=== PATIENT | female | born 1980 | race Caucasian/White ===

== ENCOUNTER → 2020-02-20 | Outpatient (CLI) | payer BC ==
[2020-02-21 09:52] LABS: Basophils # (auto) 0.1 10 ^3/uL (0-0.2); Basophils % (auto) 0.9 % (0.0-2.0); Eosinophils # (auto) 0.2 10 ^3/uL (0-0.8); Eosinophils % (auto) 3.5 % (0.0-7.0); Hematocrit 46.1 % (36.0-46.0); Lymphocytes % (auto) 31.4 % (10.0-50.0); Mean Corpuscular Hemoglobin 28.9 pg (28.0-32.0); Mean Corpuscular Hgb Conc. 32.6 g/dL (32.0-36.0); Mean Corpuscular Volume 88.7 fL (80.0-100.0); Monocytes # (auto) 0.3 10 ^3/uL (0-1.3); Monocytes % (auto) 5.5 % (0.0-12.0); Neutrophils # (auto) 3.7 10 ^3/uL (1.6-8.6); Neutrophils % (auto) 58.7 % (37.0-80.0); Nucleated Red Blood Cells % 0.1 %; Platelet Count (auto) 291 10^3/uL (140-450); Red Blood Cells 5.19 10^6/uL (4.0-5.20); Red Cell Distribution Width 13.9 % (11.8-14.3); White Blood Cell 6.3 10^3/uL (4.4-10.8)
[2020-02-21 10:09] LABS: Albumin 3.7 g/dL (3.4-5.0); Anion Gap 9 (5-15); Blood Urea Nitrogen 10 mg/dL (7-18); Calcium 8.8 mg/dL (8.5-10.1); Carbon Dioxide 27 mmol/L (21-32); Chloride 104 mmol/L (98-107); Glucose 127 mg/dL (74-106); Potassium 4.8 mmol/L (3.5-5.1); Sodium 140 mmol/L (136-145)
[2020-02-21 10:14] LABS: Alanine Aminotransferase 33 U/L (13-56); Alkaline Phosphatase 100 U/L (45-117); Aspartate Aminotransferase 20 U/L (15-37); BUN/Creatinine Ratio 11.4; Bilirubin, Total 0.4 mg/dL (0.2-1.0); Cholesterol 205 mg/dL (< 200); GFR African American 92 mL/min; GFR Non-African American 76 mL/min; HDL Cholesterol 30 mg/dL (40-59); Triglycerides 524 mg/dL (< 150)
== END | disposition home or self-care (01) ==
LOC: LAB 08:55
PROVIDERS: ATTEND Internal Medicine
DX: Z00.00 Encounter for general adult medical examination without abnormal findings (principal)
CPT/HCPCS: 36415; 80053; 80061; 83036; 84443; 85025

== ENCOUNTER → 2020-07-01 | Outpatient (CLI) | payer BC ==
[2020-07-01 12:22] LABS: Potassium 3.9 mmol/L (3.5-5.1)
[2020-07-01 12:33] LABS: Albumin 3.6 g/dL (3.4-5.0); BUN/Creatinine Ratio 14.3; Bilirubin, Total 0.4 mg/dL (0.2-1.0); Calcium 8.8 mg/dL (8.5-10.1); Total Protein 7.4 g/dL (6.4-8.2)
== END | disposition home or self-care (01) ==
LOC: LAB 11:12
PROVIDERS: ATTEND Internal Medicine
DX: I10 Essential (primary) hypertension (principal); E78.5 Hyperlipidemia, unspecified; R73.9 Hyperglycemia, unspecified
CPT/HCPCS: 36415; 80053; 80061; 82043; 83036

== ENCOUNTER → 2020-11-18 | Outpatient (CLI) | payer BC | END | disposition home or self-care (01) | LOC: LAB 14:50 | DX: N63.0 Unspecified lump in unspecified breast (principal) ==

== ENCOUNTER → 2020-11-29 | Outpatient (CLI) | payer BC | END | disposition home or self-care (01) | LOC: Rad HDHVI 15:59 | PROVIDERS: ATTEND Internal Medicine Cardiovascular Disease | DX: I10 Essential (primary) hypertension (principal); E66.01 Morbid (severe) obesity due to excess calories | CPT/HCPCS: 93306 ==

== ENCOUNTER → 2020-12-10 | Outpatient (CLI) | payer BC ==
[~2020-12-10] MED LIST: ASCO100076 PO; FENO160T8 PO; OLME1TAB23 PO; OLME20TA53 PO; OLME40TA26 PO; POTA1TAB61 PO; TURM500C3 PO; ZOLP5TAB PO
[2020-12-10 10:05] LABS: Basophils # (auto) 0.1 10 ^3/uL (0-0.2); Basophils % (auto) 0.8 % (0.0-2.0); Eosinophils # (auto) 0.4 10 ^3/uL (0-0.8); Eosinophils % (auto) 5.1 % (0.0-7.0); Hematocrit 43.2 % (36.0-46.0); Hemoglobin 14.5 g/dL (12.2-16.2); Lymphocytes # (auto) 2.1 10 ^3/uL (0.4-5.4); Lymphocytes % (auto) 24.9 % (10.0-50.0); Mean Corpuscular Hemoglobin 29.3 pg (28.0-32.0); Mean Corpuscular Hgb Conc. 33.6 g/dL (32.0-36.0); Mean Corpuscular Volume 87.2 fL (80.0-100.0); Monocytes # (auto) 0.4 10 ^3/uL (0-1.3); Monocytes % (auto) 4.4 % (0.0-12.0); Neutrophils # (auto) 5.4 10 ^3/uL (1.6-8.6); Neutrophils % (auto) 64.8 % (37.0-80.0); Nucleated Red Blood Cells % 0.1 %; Platelet Count (auto) 317 10^3/uL (140-450); Red Blood Cells 4.95 10^6/uL (4.0-5.20); Red Cell Distribution Width 13.8 % (11.8-14.3); White Blood Cell 8.3 10^3/uL (4.4-10.8)
[2020-12-10 10:09] LABS: Urine Blood Negative /uL (Negative); Urine Specific Gravity 1.017 (1.001-1.035)
[2020-12-10 10:36] LABS: Albumin 3.9 g/dL (3.4-5.0); Anion Gap 9 (5-15); Calcium 9.3 mg/dL (8.5-10.1); Carbon Dioxide 25 mmol/L (21-32); Chloride 102 mmol/L (98-107); Glucose 155 mg/dL (74-106); Potassium 3.8 mmol/L (3.5-5.1); Sodium 136 mmol/L (136-145)
[2020-12-10 12:28] LABS: Alanine Aminotransferase 25 U/L (13-56); Alkaline Phosphatase 88 U/L (45-117); Aspartate Aminotransferase 15 U/L (15-37); Bilirubin, Direct 0.1 mg/dL (0-0.2); Bilirubin, Total 0.5 mg/dL (0.2-1.0); Cholesterol 233 mg/dL (< 200); GFR African American 102 mL/min; GFR Non-African American 84 mL/min; HDL Cholesterol 36 mg/dL (40-59); Lactate Dehydrogenase 201 U/L (84-246); Total Protein 8.1 g/dL (6.4-8.2); Triglycerides 575 mg/dL (< 150)
[2020-12-11 13:56] LABS: BUN/Creatinine Ratio 17.5; Blood Urea Nitrogen 14 mg/dL (7-18)
== END | disposition home or self-care (01) ==
LOC: LAB 09:36
PROVIDERS: ATTEND Internal Medicine Cardiovascular Disease
DX: C50.912 Malignant neoplasm of unspecified site of left female breast (principal); R53.1 Weakness; R30.0 Dysuria; R00.2 Palpitations; E55.9 Vitamin D deficiency, unspecified; D64.9 Anemia, unspecified; D51.3 Other dietary vitamin B12 deficiency anemia
CPT/HCPCS: 36415; 80053; 80061; 80076; 81003; 82306; 83036; 83615; 84443; 85025; 86300

== ENCOUNTER 2020-12-11 06:20 | Inpatient (IN) | payer BC ==
[2020-12-10 10:13] LABS: Urine Bacteria NONE SEEN /hpf (None Seen); Urine Blood Negative /uL (Negative); Urine Specific Gravity 1.017 (1.001-1.035); Urine WBC <1 /hpf (0 - 5)
[2020-12-10 10:15] LABS: Basophils # (auto) 0.1 10 ^3/uL (0-0.2); Basophils % (auto) 0.8 % (0.0-2.0); Eosinophils # (auto) 0.4 10 ^3/uL (0-0.8); Hematocrit 43.7 % (36.0-46.0); Hemoglobin 14.6 g/dL (12.2-16.2); Lymphocytes # (auto) 2.2 10 ^3/uL (0.4-5.4); Lymphocytes % (auto) 24.9 % (10.0-50.0); Mean Corpuscular Hemoglobin 29.1 pg (28.0-32.0); Mean Corpuscular Hgb Conc. 33.5 g/dL (32.0-36.0); Mean Corpuscular Volume 86.9 fL (80.0-100.0); Monocytes # (auto) 0.4 10 ^3/uL (0-1.3); Monocytes % (auto) 4.1 % (0.0-12.0); Neutrophils # (auto) 5.6 10 ^3/uL (1.6-8.6); Neutrophils % (auto) 65.2 % (37.0-80.0); Platelet Count (auto) 337 10^3/uL (140-450); Red Blood Cells 5.03 10^6/uL (4.0-5.20); White Blood Cell 8.6 10^3/uL (4.4-10.8)
[2020-12-10 10:22] LABS: INR 0.97 (0.9-1.15); Partial Thromboplastin Time 28.9 sec (23.0-31.2)
[2020-12-10 10:40] LABS: Calcium 9.3 mg/dL (8.5-10.1); Potassium 3.8 mmol/L (3.5-5.1)
[2020-12-10 10:46] LABS: Bilirubin, Total 0.5 mg/dL (0.2-1.0); Total Protein 8.1 g/dL (6.4-8.2)
[~2020-12-11] VITALS: Ht 160 cm; Wt 113.0 kg
[~2020-12-11 06:20] MED LIST changes: -ASCO100076 PO; -OLME1TAB23 PO; -OLME40TA26 PO; -TURM500C3 PO; -ZOLP5TAB PO
[2020-12-11] MEDS ORDERED: BUPIVACAINE HCL 0 ML ONE (06:55)
[2020-12-11] MEDS ORDERED: levoFLOXacin 500MG 100 ML IV ONE (07:19)
[2020-12-11] MEDS ORDERED: BUPIVACAINE 0.25% INJ 50ML VIAL ONE (07:21)
[2020-12-11] MEDS ORDERED: LIDOCAINE W/ EPINEPHRINE 1% 20ML VIAL ONE (07:21)
[2020-12-11] MEDS ORDERED: SUCCINYLCHOLINE CHLORIDE 20 MG/ML 10ML VIAL IV ONE (07:29)
[2020-12-11] MEDS ORDERED: MEPERIDINE HCL (50 MG/ML) 1 ML VIAL ONE (07:29)
[2020-12-11] MEDS ORDERED: fentaNYL CITRATE 100 MCG/2 ML VL ONE ×2 (07:29→07:55)
[2020-12-11] MEDS ORDERED: MIDAZOLAM HCL 1MG/1ML-2 ML VIAL ONE (07:30)
[2020-12-11] MEDS ORDERED: MORPHINE SULFATE 4 MG/ML SYR/VIAL IV PRN (07:45)
[2020-12-11] MEDS ORDERED: HYDROmorphone HCL 2 MG/ML VL IV PRN (07:45)
[2020-12-11] MEDS ORDERED: MIDAZOLAM HCL 1MG/1ML-2 ML VIAL IV PRN (07:45)
[2020-12-11] MEDS ORDERED: ONDANSETRON HCL 4 MG/2 ML VIAL IV PRN ×2 (07:45→10:00)
[2020-12-11] MEDS ORDERED: KETOROLAC TROMETH 30 MG/ML 1ML VIAL IV ONE (07:45)
[2020-12-11] MEDS ORDERED: ePHEDrine SULFATE 50 MG/ML AMP IV PRN (07:45)
[2020-12-11] MEDS ORDERED: LABETALOL HCL 5 MG/ML 4ML SYRINGE IV PRN (07:45)
[2020-12-11] MEDS ORDERED: PROPOFOL 10 MG/ML 20 ML IV ONE (07:54)
[2020-12-11] MEDS ORDERED: DexAMETHasone SOD PHOS 10MG/1ML VIAL INJ ONE (07:54)
[2020-12-11] MEDS ORDERED: ROCURONIUM 10MG/ML 10ML VIAL IV ONE (08:15)
[2020-12-11] MEDS: PANTOPRAZOLE 40 MG/10 ML VIAL INJ IV SCH ×2 (11:30→12:43)
[2020-12-11] MEDS: D5W/SOD CHL 0.45%/KCL 20MEQ 1,000 ML IV SCH (12:43)
[2020-12-11 13:00] VITALS: BP 113/70
[2020-12-11] MEDS: CLINDAMYCIN 600MG IV 50 ML IV SCH ×2 (13:31→21:37)
[2020-12-11] MEDS ORDERED: ASCO100076 PO (14:44)
[2020-12-11] MEDS ORDERED: TURM500C3 PO (14:44)
[2020-12-11] MEDS ORDERED: OLME1TAB23 PO (14:44)
[2020-12-11] MEDS ORDERED: OLME40TA26 PO (14:49)
[2020-12-11] MEDS ORDERED: ZOLP5TAB PO (14:54)
[2020-12-11 17:00] VITALS: BP 105/51
[2020-12-11] MEDS: THROAT LOZENGES(CEPASTAT) MT PRN (20:21)
[2020-12-11] MEDS: HYDROcodone-ACET 5/325MG TAB PO PRN (21:34)
[2020-12-11 22:16] VITALS: BP 122/64
[2020-12-12] MEDS: D5W/SOD CHL 0.45%/KCL 20MEQ 1,000 ML IV SCH ×3 (00:38→11:03)
[2020-12-12] MEDS: HYDROmorphone HCL 2 MG/ML VL IV PRN ×2 (02:08→22:18)
[2020-12-12] MEDS: CLINDAMYCIN 600MG IV 50 ML IV SCH ×3 (05:39→22:19)
[2020-12-12] MEDS: HYDROcodone-ACET 5/325MG TAB PO PRN ×2 (05:40→13:10)
[2020-12-12 06:49] LABS: Basophils # (auto) 0 10 ^3/uL (0-0.2); Basophils % (auto) 0.1 % (0.0-2.0); Eosinophils # (auto) 0 10 ^3/uL (0-0.8); Hematocrit 36.1 % (36.0-46.0); Hemoglobin 11.7 g/dL (12.2-16.2); Lymphocytes # (auto) 1.5 10 ^3/uL (0.4-5.4); Lymphocytes % (auto) 12.7 % (10.0-50.0); Mean Corpuscular Hgb Conc. 32.5 g/dL (32.0-36.0); Mean Corpuscular Volume 89.3 fL (80.0-100.0); Monocytes # (auto) 0.6 10 ^3/uL (0-1.3); Monocytes % (auto) 5.4 % (0.0-12.0); Neutrophils # (auto) 9.3 10 ^3/uL (1.6-8.6); Neutrophils % (auto) 81.8 % (37.0-80.0); Platelet Count (auto) 288 10^3/uL (140-450); Red Blood Cells 4.04 10^6/uL (4.0-5.20); White Blood Cell 11.4 10^3/uL (4.4-10.8)
[2020-12-12 07:11] LABS: BUN/Creatinine Ratio 20.3; Calcium 8.5 mg/dL (8.5-10.1); Potassium 4.2 mmol/L (3.5-5.1)
[2020-12-12 08:28] VITALS: BP 107/50
[2020-12-12] MEDS: PANTOPRAZOLE 40 MG/10 ML VIAL INJ IV SCH (10:09)
[2020-12-12] MEDS ORDERED: ASCORBIC ACID 500 MG TAB PO ONE (10:15)
[2020-12-12] MEDS ORDERED: diphenhdrAMINE HCL 50 MG/1 ML VL IV PRN (10:15)
[2020-12-12] MEDS ORDERED: ZOLPIDEM TARTRATE 5 MG TAB PO PRN (10:15)
[2020-12-12 16:27] VITALS: BP 103/48
[2020-12-12 22:00] VITALS: BP 136/71
[2020-12-12] MEDS: ASCORBIC ACID 500 MG TAB PO SCH (22:18)
[2020-12-12] MEDS: THROAT LOZENGES(CEPASTAT) MT PRN (22:30)
[2020-12-13] MEDS: D5W/SOD CHL 0.45%/KCL 20MEQ 1,000 ML IV SCH (00:10)
[2020-12-13 05:00] VITALS: BP 120/74
[2020-12-13 05:06] LABS: Basophils # (auto) 0.1 10 ^3/uL (0-0.2); Basophils % (auto) 1.1 % (0.0-2.0); Eosinophils # (auto) 0.1 10 ^3/uL (0-0.8); Eosinophils % (auto) 1.8 % (0.0-7.0); Hematocrit 31.4 % (36.0-46.0); Hemoglobin 10.6 g/dL (12.2-16.2); Lymphocytes # (auto) 2.9 10 ^3/uL (0.4-5.4); Lymphocytes % (auto) 40.5 % (10.0-50.0); Mean Corpuscular Hemoglobin 29.8 pg (28.0-32.0); Mean Corpuscular Hgb Conc. 33.8 g/dL (32.0-36.0); Mean Corpuscular Volume 88.3 fL (80.0-100.0); Monocytes # (auto) 0.5 10 ^3/uL (0-1.3); Monocytes % (auto) 6.7 % (0.0-12.0); Neutrophils # (auto) 3.5 10 ^3/uL (1.6-8.6); Neutrophils % (auto) 49.9 % (37.0-80.0); Nucleated Red Blood Cells % 0.2 %; Platelet Count (auto) 247 10^3/uL (140-450); Red Blood Cells 3.56 10^6/uL (4.0-5.20)
[2020-12-13] MEDS: CLINDAMYCIN 600MG IV 50 ML IV SCH (05:51)
[2020-12-13] MEDS: HYDROcodone-ACET 5/325MG TAB PO PRN ×2 (06:07→10:47)
[2020-12-13] MEDS: THROAT LOZENGES(CEPASTAT) MT PRN (06:08)
[2020-12-13 08:59] VITALS: BP 120/69
[2020-12-13] MEDS ORDERED: BENAZEPRIL HCL 10 MG TAB PO SCH (10:00)
[2020-12-13] MEDS: ASCORBIC ACID 500 MG TAB PO SCH (10:00)
[2020-12-13] MEDS ORDERED: FAMOTIDINE 20 MG TAB PO SCH (10:00)
[2020-12-13 11:10] VITALS: BP 120/69
== END 2020-12-13 12:00 | disposition home or self-care (01) | DRG 580 ==
LOC: SUR 06:20 → EEVIPCON 07:00 → CENTRAL 11:20
PROVIDERS: ADMIT Surgery; ATTEND Internal Medicine
PROC: 07T60ZZ Resection of Left Axillary Lymphatic, Open Approach (ICD-10-PCS; principal; 2020-12-11 07:31)
PROC: 0HTT0ZZ Resection of Right Breast, Open Approach (ICD-10-PCS; 2020-12-11 07:31)
DX: C50.912 Malignant neoplasm of unspecified site of left female breast (principal); Z68.41 Body mass index [BMI] 40.0-44.9, adult; E66.01 Morbid (severe) obesity due to excess calories; Z90.13 Acquired absence of bilateral breasts and nipples; I10 Essential (primary) hypertension; Z88.8 Allergy status to other drugs, medicaments and biological substances; Z91.040 Latex allergy status; Z20.822 Contact with and (suspected) exposure to COVID-19
CPT/HCPCS: 36415; 80048; 80053; 81001; 84702; 85025; 85610; 85730; C9113; G0378; J0330; J1100; J1956; J2250; J2704; J3490

== ENCOUNTER 2021-06-20 00:15 | Emergency (ER) | payer BC ==
[~2021-06-20] VITALS: Ht 160 cm; Wt 113.4 kg
[~2021-06-20 00:15] MED LIST changes: +ASCO100076 PO; -OLME20TA53 PO; +OLME40TA26 PO; +TURM500C3 PO; +ZOLP5TAB PO
[2021-06-20 01:26] LABS: Urine Bacteria NONE SEEN /hpf (None Seen); Urine Blood 3+ /uL (Negative); Urine WBC 168 /hpf (0 - 5)
[2021-06-20 03:07] LABS: Basophils # (auto) 0.1 10 ^3/uL (0-0.2); Basophils % (auto) 0.8 % (0.0-2.0); Eosinophils # (auto) 0.2 10 ^3/uL (0-0.8); Eosinophils % (auto) 1.9 % (0.0-7.0); Hematocrit 39.3 % (36.0-46.0); Hemoglobin 13.1 g/dL (12.2-16.2); Lymphocytes # (auto) 2.8 10 ^3/uL (0.4-5.4); Lymphocytes % (auto) 26.7 % (10.0-50.0); Mean Corpuscular Hgb Conc. 33.4 g/dL (32.0-36.0); Mean Corpuscular Volume 86.9 fL (80.0-100.0); Monocytes # (auto) 0.6 10 ^3/uL (0-1.3); Monocytes % (auto) 5.5 % (0.0-12.0); Neutrophils # (auto) 6.9 10 ^3/uL (1.6-8.6); Neutrophils % (auto) 65.1 % (37.0-80.0); Red Blood Cells 4.52 10^6/uL (4.0-5.20); Red Cell Distribution Width 14.2 % (11.8-14.3); White Blood Cell 10.5 10^3/uL (4.4-10.8)
[2021-06-20 03:16] LABS: Albumin 3.3 g/dL (3.4-5.0); BUN/Creatinine Ratio 21.6; Calcium 8.4 mg/dL (8.5-10.1); Potassium 3.7 mmol/L (3.5-5.1)
[2021-06-20 03:19] LABS: Bilirubin, Total 0.3 mg/dL (0.2-1.0); Total Protein 7.3 g/dL (6.4-8.2)
[2021-06-20 03:30] VITALS: BP 142/90
== END 2021-06-20 03:51 | disposition home or self-care (01) ==
LOC: EEVIPCON 00:15 → ER 00:15
DX: N39.0 Urinary tract infection, site not specified (principal); Z88.8 Allergy status to other drugs, medicaments and biological substances; Z85.3 Personal history of malignant neoplasm of breast; Z91.040 Latex allergy status
CPT/HCPCS: 36415; 80053; 81001; 85025; 87086; 87088; 87186

== ENCOUNTER → 2021-12-31 | Outpatient (CLI) | payer BC | END | disposition home or self-care (01) | LOC: XYW 07:32 | PROVIDERS: ATTEND Internal Medicine | DX: R14.0 Abdominal distension (gaseous) (principal) | CPT/HCPCS: 78264; A9541 ==

== ENCOUNTER → 2022-04-21 | Outpatient (CLI) | payer BC ==
[2022-04-21 12:33] LABS: Basophils # (auto) 0.1 10 ^3/uL (0-0.2); Basophils % (auto) 1.1 % (0.0-2.0); Eosinophils # (auto) 0.2 10 ^3/uL (0-0.8); Eosinophils % (auto) 3.6 % (0.0-7.0); Hematocrit 40.1 % (36.0-46.0); Hemoglobin 12.8 g/dL (12.2-16.2); Lymphocytes # (auto) 2.4 10 ^3/uL (0.4-5.4); Lymphocytes % (auto) 39.4 % (10.0-50.0); Mean Corpuscular Hemoglobin 27.5 pg (28.0-32.0); Mean Corpuscular Hgb Conc. 31.9 g/dL (32.0-36.0); Mean Corpuscular Volume 86.2 fL (80.0-100.0); Monocytes # (auto) 0.4 10 ^3/uL (0-1.3); Monocytes % (auto) 6.1 % (0.0-12.0); Neutrophils # (auto) 3.1 10 ^3/uL (1.6-8.6); Neutrophils % (auto) 49.8 % (37.0-80.0); Red Blood Cells 4.66 10^6/uL (4.0-5.20); Red Cell Distribution Width 13.8 % (11.8-14.3); White Blood Cell 6.2 10^3/uL (4.4-10.8)
[2022-04-21 12:57] LABS: Cholesterol 268 mg/dL (< 200); HDL Cholesterol 40 mg/dL (40-59); Triglycerides 443 mg/dL (< 150)
== END | disposition home or self-care (01) ==
LOC: LAB 11:45
PROVIDERS: ATTEND Internal Medicine
DX: E11.9 Type 2 diabetes mellitus without complications (principal); I10 Essential (primary) hypertension; R21 Rash and other nonspecific skin eruption
CPT/HCPCS: 36415; 80061; 83036; 85025; 85652

== ENCOUNTER → 2022-09-25 | Outpatient (CLI) | payer BC ==
[2022-09-25 11:24] LABS: Basophils # (auto) 0.1 10 ^3/uL (0-0.2); Basophils % (auto) 0.9 % (0.0-2.0); Eosinophils # (auto) 0.3 10 ^3/uL (0-0.8); Eosinophils % (auto) 4.4 % (0.0-7.0); Hematocrit 40.5 % (36.0-46.0); Hemoglobin 13.1 g/dL (12.2-16.2); Lymphocytes # (auto) 1.8 10 ^3/uL (0.4-5.4); Lymphocytes % (auto) 29.9 % (10.0-50.0); Mean Corpuscular Hemoglobin 28.2 pg (28.0-32.0); Mean Corpuscular Hgb Conc. 32.3 g/dL (32.0-36.0); Mean Corpuscular Volume 87.4 fL (80.0-100.0); Monocytes # (auto) 0.3 10 ^3/uL (0-1.3); Monocytes % (auto) 4.7 % (0.0-12.0); Neutrophils # (auto) 3.6 10 ^3/uL (1.6-8.6); Neutrophils % (auto) 60.1 % (37.0-80.0); Nucleated Red Blood Cells % 0.1 %; Red Blood Cells 4.64 10^6/uL (4.0-5.20); White Blood Cell 5.9 10^3/uL (4.4-10.8)
[2022-09-25 11:47] LABS: Urine Bacteria NONE SEEN /hpf (None Seen); Urine Blood Negative /uL (Negative); Urine Mucus FEW (None Seen); Urine Specific Gravity 1.027 (1.001-1.035); Urine WBC 3 /hpf (0 - 5)
[2022-09-25 11:57] LABS: Albumin 3.6 g/dL (3.4-5.0); Calcium 9.1 mg/dL (8.5-10.1); Uric Acid 7.2 mg/dL (2.6-6.0)
[2022-09-25 12:03] LABS: Bilirubin, Total 0.4 mg/dL (0.2-1.0); Total Protein 7.5 g/dL (6.4-8.2)
[2022-09-25 12:40] LABS: Free T4 (Free Thyroxine) 0.92 ng/dL (0.89-1.76)
[2022-09-25 15:06] LABS: Micro Albumin 9.36 mg/L (0-30.0)
== END | disposition home or self-care (01) ==
LOC: LAB 10:52
PROVIDERS: ATTEND Internal Medicine
DX: E11.9 Type 2 diabetes mellitus without complications (principal); E78.5 Hyperlipidemia, unspecified
CPT/HCPCS: 36415; 80053; 80061; 81001; 82043; 82306; 82570; 82607; 84439; 84443; 84550; 85025; 85652; 86200

== ENCOUNTER → 2024-02-10 | Outpatient (CLI) | payer BC ==
[~2024-02-10] MED LIST changes: +FENO160T PO; -FENO160T8 PO; -OLME40TA26 PO; +OLME40TA78 PO; +POTA-215 PO; -POTA1TAB61 PO
[2024-02-10 16:31] LABS: Urine Bacteria FEW /hpf (None Seen); Urine Blood 2+ /uL (Negative); Urine Clarity Turbid (Clear); Urine Color Light-Yellow (Yellow); Urine Mucus FEW (None Seen); Urine Protein, UAD TRACE (Negative); Urine Urobilinogen Normal (Negative); Urine WBC 123 /hpf (0 - 5); Urine pH 5.5 (5.0-9.0)
== END | disposition home or self-care (01) ==
LOC: LAB 15:29
PROVIDERS: ATTEND Internal Medicine Pulmonary Disease
DX: N39.0 Urinary tract infection, site not specified (principal)
CPT/HCPCS: 81001; 87086

== ENCOUNTER 2025-01-28 06:32 | Emergency (ER) | payer BC ==
[~2025-01-28] VITALS: Ht 157.5 cm; Wt 111.3 kg
[2025-01-28 08:01] VITALS: BP 106/69; PULSE 105; RESP 16; TEMP 99.2; O2SAT 96
--- NOTE | 2025-01-28 08:03 | ED.PDOC ---
History of Present Illness HPI Comments 44-year-old female presents to the ER with prior medical history of hypertension, diabetes and the chief complaint of the sore throat. Patient reports on having sore/swollen probe on other side for the past two days. Patient states on having been ingrown on the right thumb with and warmness which started on of 01/25/2025. After physical exam patient does have pharyngitis. Denies chills, fever, N/V/D, SOB, CP. No other associated symptoms, modifiers, recent injuries or sick contacts present at this time. Chief Complaint: Sore Throat Time Seen by MD: 07:50 Primary Care Provider: NATHALIE Lopez Notes: Nurses Notes, Medications, Allergies Allergies: Coded Allergies: Cephalexin (Verified Allergy, Unknown, 12/09/20) Latex (Verified Allergy, Unknown, 12/09/20) Metronidazole (Verified Allergy, Unknown, 12/09/20) Home Meds Reported Medications Zolpidem Tartrate (Ambien) 5 Mg Tab, 5 MG PO QHSP, TAB 12/11/20 Olmesartan Medoxomil (Benicar) 40 Mg Tab, 1 TAB PO DAILY, #30 TAB 5 Refills 40/25 TAB 12/11/20 Curcuma Longa (Turmeric) Extra (TURMERIC) 500 Mg Cap, 1000 MG PO DAILY 12/11/20 Ascorbic Acid (Vitamin C) 1,000 Mg Tab, 4000 MG PO DAILY 12/11/20 Fenofibrate (Fenofibrate) 160 Mg Tab, 1 TAB PO DAILY, #30 TAB 5 Refills 12/09/20 Potassium Chloride (Klor-Con M10) 10 Meq Tab, 1 TAB PO DAILY, #30 TAB 5 Refills 12/09/20 Information Source: Patient Mode of Arrival: Ambulatory Severity: Moderate Timing: Days Duration: Since onset, Days Prehospital treatment: None Past Medical History PAST MEDICAL HISTORY: DM, HTN 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 Pertinent WAITER/WAITRESS HEAD History Family History Family History: Reviewed,noncontributory to illness, Unknown Social History Smoker: Non-Smoker Alcohol: Denies ETOH Use Drugs: Denies Drug Use Constitutional: denies: chills, diaphoresis, fatigue, fever, malaise, sweats, weakness, others EENTM: reports: throat pain, throat swelling; denies: blurred vision, double vision, ear bleeding, ear discharge, ear drainage, ear pain, ear ringing, eye pain, eye redness, hearing loss, mouth pain, mouth swelling, nasal discharge, nose bleeding, nose congestion, nose pain, photophobia, tearing, voice changes, others Respiratory: denies: cough, hemoptysis, orthopnea, SOB at rest, shortness of breath, SOB with excertion, stridor, wheezing, others Cardiovascular: denies: chest pain, dizzy spells, diaphoresis, Dyspnea on exertion, edema, irregular heart beat, left arm pain, lightheadedness, palpitations, PND, syncope, others Gastrointestinal: denies: abdomen distended, abdominal pain, blood streaked bowels, constipated, diarrhea, dysphagia, difficulty swallowing, hematemesis, melena, nausea, poor appetite, poor fluid intake, rectal bleeding, rectal pain, vomiting, others Genitourinary: denies: abnormal vagina bleeding, burning, dyspareunia, dysuria, flank pain, frequency, hematuria, incontinence, pain, , vagina discharge, urgency, others Neurological: denies: dizziness, fainting, headache, left sided numbness, left sided weakness, numbness, paresthesia, pre-existing deficit, right sided numbness, right sided weakness, seizure, speech problems, tingling, tremors, weakness, others Musculoskeletal: denies: back pain, gout, joint pain, joint swelling, muscle pain, muscle stiffness, neck pain, others Integumetry: denies: bruises, change in color, change in hair/nails, dryness, laceration, lesions, lumps, rash, wounds, others Allergic/Immunocompromised: denies: Difficulty Healing, Frequent Infections, Hives, Itching, others Hematologic/Lymphatic: denies: anemia, blood clots, easy bleeding, easy bruising, swollen glands, others Endocrine: denies: excessive hunger, excessive sweating, excessive thirst, excessive urination, flushing, intolerance to cold, intolerance to heat, unexplained weight gain, unexplained weight loss, others Psychiatric: denies: anxiety, bipolar disorder, depression, hopeless, panic disorder, schizophrenia, sleepless, suicidal, others All Other Systems: Reviewed and Negative Physical Exam General Appearance: Moderate Distress, Normal HEENT: Normal ENT Inspection, Pharyngeal Erythema, TMs Normal Neck: Full Range of Motion, Non-Tender, Normal, Normal Inspection Respiratory: Chest Non-Tender, Lungs Clear, No Accessory Muscle Use, No Respiratory Distress, Normal Breath Sounds Cardiovascular: No Edema, No JVD, No Murmur, No Gallop, Normal Peripheral Pulses, Regular Rate/Rhythm Breast Exam: Deferred Gastrointestinal: No Organomegaly, Non Tender, No Pulsatile Mass, Normal Bowel Sounds, Soft Genitalia: Deferred Pelvic: Deferred Rectal: Deferred Extremities: No calf tenderness, Normal capillary refill, Normal inspection, Normal range of motion, Non-tender, No pedal edema Musculoskeletal : Apperance: Normal Neurologic: Alert, road repairer II-XII nml as Tested, No Motor Deficits, Normal Affect, Normal Mood, No Sensory Deficits Cerebellar Function: Normal Reflexes: Normal Skin: Dry, Normal Color, Warm, Wounds (Right thumb) Peripheral Pulses: 3+ Radial (R), 3+ Radial (L) Lymphatic: No Adenopathy Was a procedure done? Was a procedure done?: No Differential Dx Considerations may include: Upper respiratory tract infection X-Ray, Labs, Meds, VS Vital Signs Date Time Temp Pulse Resp B/P (MAP) Pulse Ox O2 Delivery O2 Flow Rate FiO2 01/28/25 08:01 99.2 105 16 106/69 (81) 96 99.2 01/28/25 08:01 105 16 96 Room Air* 0 21 01/28/25 07:20 99.1 110 18 114/79 (91) 96 99.1 Patient alert. Complaining of sore throat. On examination pharyngeal erythema. Vitals stable. Answering questions. Saturation pristine on room air. She was given prescription of doxycycline antibiotic. She does have redness of the right thumb. No sign of any ingrown nail. Explained to the patient about her diagnosis. Was told to follow up with her primary care physician. Was told to come back if there is any problem. Time of 1ST Reevaluation: 08:20 Reevaluation 1ST: Improved Patient Education/Counseling: Diagnosis, Treatment, Prognosis Family Education/Counseling: No Family Present Departure 1 Departure Time of Disposition: 08:09 Impression: Primary Impression: Pharyngitis Qualified Codes: J02.9 - Acute pharyngitis, unspecified Additional Impression: Cellulitis Qualified Codes: L03.113 - Cellulitis of right upper limb Disposition: 01 HOME / SELF CARE / HOMELESS Condition: Good e-Prescriptions Ibuprofen Micronized (MOTRIN TABLET) 600 Mg Tb 600 MG PO TID PRN for 3 Days, #9 TAB *Black box warning-NSAIDS can increase risk of CO & hypertension, GI irritation, ulceration, bleed, perferation. Do not use post cardiac surgery. Use short duration/lowest effective dose. Prov: MATEUSZ INGRAM MD 01/28/25 Doxycycline Monohydrate (Doxycycline Monohydrate) 100 Mg Cap 1 CAP PO BID for 7 Days, #14 CAP Prov: MATEUSZ INGRAM MD 01/28/25 Discharged With: Self Critical Care Note Critical Care Time?: No Stability Stability form required: No Heart Score Heart Score: Heart Score Response (Comments) Value History N/A 0 EKG N/A 0 Age N/A 0 Risk Factors N/A 0 Troponin N/A 0 Total 0 I personally scribed for MATEUSZ INGRAM MD ([email or web address]) on 01/28/25 at 08:03. Electronically submitted by Awais Medina ([email or web address]). MATEUSZ INGRAM MD January 28, 2025 08:03
[2025-01-28] MEDS ORDERED: DOXY1CAP57 PO (08:10)
[2025-01-28] MEDS ORDERED: IBU600T PO (08:10)
== END 2025-01-28 08:16 | disposition home or self-care (01) ==
LOC: ER 06:32
DX: L03.113 Cellulitis of right upper limb (principal); J02.9 Acute pharyngitis, unspecified; E11.9 Type 2 diabetes mellitus without complications; I10 Essential (primary) hypertension; Z79.899 Other long term (current) drug therapy; Z88.1 Allergy status to other antibiotic agents; Z91.040 Latex allergy status

== ENCOUNTER 2025-02-25 20:55 | Emergency (ER) | payer BC, OTHER ==
[~2025-02-25] VITALS: Ht 160 cm; Wt 112.6 kg
[~2025-02-25 20:55] MED LIST changes: +DOXY1CAP57 PO; +IBU600T PO
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
[2025-02-25] MEDS ORDERED: CYCL-837 PO (22:38)
[2025-02-25 23:09] VITALS: BP 128/75; PULSE 94; RESP 18; TEMP 98.3; O2SAT 98
[2025-02-25] MEDS: CYCLOBENZAPRINE HCL 10 MG TAB PO ONE (23:18)
== END 2025-02-25 23:25 | disposition home or self-care (01) ==
LOC: ER 20:55 → EEVIPCON 20:55 → ER 23:25
DX: S16.1XXA Strain of muscle, fascia and tendon at neck level, initial encounter (principal); S29.012A Strain of muscle and tendon of back wall of thorax, initial encounter; E11.9 Type 2 diabetes mellitus without complications; I10 Essential (primary) hypertension; Z79.899 Other long term (current) drug therapy; Z88.1 Allergy status to other antibiotic agents; V89.2XXA Person injured in unspecified motor-vehicle accident, traffic, initial encounter; Y93.89 Activity, other specified; Y92.410 Unspecified street and highway as the place of occurrence of the external cause; Y99.8 Other external cause status
CPT/HCPCS: 72040; 72070